=== PATIENT | male | born 1940 | race Caucasian/White ===

== ENCOUNTER 2017-07-14 11:08 | Outpatient (CLI) | payer MEDICARE ==
[2017-07-14] MEDS ORDERED: Iopamidol 370 76% 100 ML VIAL ONE (11:51)
== END 2017-07-14 11:09 | disposition home or self-care (01) ==
LOC: BICCT 11:08
PROVIDERS: ATTEND Family Medicine
DX: K52.9 Noninfective gastroenteritis and colitis, unspecified (principal); K21.9 Gastro-esophageal reflux disease without esophagitis; J31.0 Chronic rhinitis; F03.90 Unspecified dementia, unspecified severity, without behavioral disturbance, psychotic disturbance, mood disturbance, and anxiety; N40.0 Benign prostatic hyperplasia without lower urinary tract symptoms; I10 Essential (primary) hypertension; R63.4 Abnormal weight loss; R53.83 Other fatigue; R05 Cough
CPT/HCPCS: 74177

== ENCOUNTER 2019-07-04 12:29 | Observation (INO) | payer MEDICARE ==
[2019-07-04 13:22] LABS: #Eosinphils 0.1 thou/uL (0.0-0.7); #Lymphocytes 1.4 thou/uL (1.20-3.40); #Monocytes 0.8 thou/uL (0.11-0.59); %Basophils 0.5 % (0.0-1.0); %Eosinophils 1.1 % (0.0-10.0); %Lymphocytes 16.9 % (21.0-51.0); %Monocytes 9.9 % (0.0-10.0); %Neutrophils 71.6 % (42.0-75.0); Hemoglobin 13.5 g/dL (14.0-18.0); Mean Corpuscular HGB CONC 32.9 g/dL (32.0-36.0); Mean Corpuscular Hemoglobin 31.4 pg (27.0-31.0); Mean Corpuscular Volume 95.4 fL (78.0-98.0); Mean Platelet Volume 6.6 fL (7.4-10.4); Platelet Count 325 thou/uL (130-400); RBC Distribution Width 12.7 % (11.5-14.5); Red Blood Cell (RBC) Count 4.29 mill/uL (4.70-6.10); White Blood Cell (WBC) Count 8.4 thou/uL (4.8-10.8)
[2019-07-04 13:48] LABS: ALT (SGPT) 15 U/L (8-55); AST (SGOT) 12 U/L (5-34); Albumin 3.8 g/dL (3.4-4.8); Alkaline Phosphatase 62 U/L (40-110); Anion Gap 10 mmol/L (10-20); BUN (Urea Nitrogen) 18 mg/dL (8.4-25.7); Bilirubin, Total 0.4 mg/dL (0.2-1.2); Calc. Creatinine Clearance 0 mL/min (70-130); Calcium 8.7 mg/dL (7.8-10.44); Carbon Dioxide 30 mmol/L (23-31); Chloride 107 mmol/L (98-107); Estimated GFR-MDRD 67; Globulin 2.7 g/dL (2.4-3.5); Glucose 86 mg/dL (83-110); Lipase 17 U/L (8-78); Potassium 4.1 mmol/L (3.5-5.1); Protein, Total 6.5 g/dL (5.8-8.1); Sodium 143 mmol/L (136-145)
--- NOTE | 2019-07-04 14:04 | RAD ---
EXAM: Single view of the chest HISTORY: Cough COMPARISON: 10/29/2014 FINDINGS: Single view of the chest shows a normal sized cardiomediastinal silhouette. There is no jose elias dence of consolidation, mass, or pleural effusion. The bones are unremarkable. IMPRESSION: No evidence of acute cardiopulmonary disease
[2019-07-04 14:08] LABS: CKMB 1.6 ng/mL (0-6.6)
[2019-07-04] MEDS ORDERED: Ondansetron PF 4 MG/2 ML Vial IVP PRN (15:05)
[2019-07-04] MEDS ORDERED: Ondansetron ODT 4 MG TAB SL PRN (15:05)
[2019-07-04] MEDS ORDERED: Nitroglycerin 2% Ointment 1 INCH/1 GM Packet ONE (15:09)
[2019-07-04] MEDS ORDERED: Aspirin Chewable 81 MG TAB ONE (15:09)
--- NOTE | 2019-07-04 15:09 | PDOC.FPRHP ---
- History of Present Illness Chief Complaint: cough History of Present Illness: 78 y/o M PMHx HTN, Dementia, BPH presents to the ED because his noted him coughing and having more SOB the past couple of days. 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 reports facial swelling and left hand swelling that started this morning that prompted ER evaluation. Concerned about yellowing appearance as well. States he has been having a productive cough with increased sputum. States decrease PO intake. Has been sleeping more. Notes trouble breathing with wheezing and gurgling mainly at night. started to increase elevation in bed with 3 pillows to try to alleviate. Has noticed increase gagging due to thick mucus. states he is DNR. ED Course: The patient was evaluated in the ED by Dr. Meyers and found to have chest pain on palpation of his chest as well as elevated BP to 170/106. He was given nitro, aspirin, hydralazine, and duoneb. - Allergies/Adverse Reactions Allergies Allergy/AdvReac Type Severity Reaction Status Date / Time ibuprofen Allergy Verified 10/29/14 13:06 - Home Medications Medication Instructions Recorded Confirmed Type Citalopram [CeleXA] 20 mg PO DAILY 07/04/19 07/04/19 History Donepezil HCl 10 mg PO DAILY 07/04/19 07/04/19 History Losartan Potassium 50 mg PO DAILY 07/04/19 07/04/19 History Memantine HCl 10 mg PO BID 07/04/19 07/04/19 History OLANZapine [ZyPREXA] 2.5 mg PO HS 07/04/19 07/04/19 History Tamsulosin HCl 0.4 mg PO DAILY 07/04/19 07/04/19 History - History PMHx: Alzheimers dementia, HTN, BPH, GERD, CKD (1 kidney) PSHx: hernia, appy, ex lap, nephrectomy, prostate FHx: Mother: Alzheimer, Father: [place] Social: lives with who is sanitary plumber. Smoked until age 31. EtOH 1 glass of wine at mealtime. Hx of trauma which caused internal bleeding and loss of a kidney All: Ibuprofen - Review of Systems ROS unobtainable: due to mental status - Vital signs BP: 170/106 HR: 71 RR: 18 Tmax: 98.4 Pox: 95% on RA Wt: 56.7kg - Physical Exam Constitutional: NAD, other (alert, but not oriented) HEENT: normocephalic and atraumatic, EOMI, conjunctiva clear, grossly normal vision, grossly normal hearing, other (dry mucous membranes) Neck: supple, no LAD -Heart: bradycardic, irregular rhythm, trace edema in left hand Lungs: CTAB, no respiratory distress, good air movement, no rales/rhonchi, no wheezing Abdomen: soft, non-tender, bowel sounds present, no masses/distention Musculoskeletal: normal structure, normal tone Skin: capillary refill <2 seconds, no jaundice Heme/Lymphatic: no unusual bruising or bleeding, no purpura FMR H&P: Results - Labs Result Diagrams: 07/04/19 12:58 07/04/19 12:58 Lab results: WBC 8.4 thou/uL (4.8-10.8) 07/04/19 12:58 Hgb 13.5 g/dL (14.0-18.0) L 07/04/19 12:58 Hct 40.9 % (42.0-52.0) L 07/04/19 12:58 MCV 95.4 fL (78.0-98.0) 07/04/19 12:58 Plt Count 325 thou/uL (130-400) 07/04/19 12:58 Neutrophils % 71.6 % (42.0-75.0) 07/04/19 12:58 Sodium 143 mmol/L (136-145) 07/04/19 12:58 Potassium 4.1 mmol/L (3.5-5.1) 07/04/19 12:58 Chloride 107 mmol/L (98-107) 07/04/19 12:58 Carbon Dioxide 30 mmol/L (23-31) 07/04/19 12:58 BUN 18 mg/dL (8.4-25.7) 07/04/19 12:58 Creatinine 1.07 mg/dL (0.7-1.3) 07/04/19 12:58 Glucose 86 mg/dL (83-110) 07/04/19 12:58 Calcium 8.7 mg/dL (7.8-10.44) 07/04/19 12:58 Total Bilirubin 0.4 mg/dL (0.2-1.2) 07/04/19 12:58 AST 12 U/L (5-34) 07/04/19 12:58 ALT 15 U/L (8-55) 07/04/19 12:58 Alkaline Phosphatase 62 U/L (40-110) 07/04/19 12:58 CK-MB (CK-2) 1.6 ng/mL (0-6.6) 07/04/19 12:58 B-Natriuretic Peptide 65.7 pg/mL (0-100) 07/04/19 12:58 Serum Total Protein 6.5 g/dL (5.8-8.1) 07/04/19 12:58 Albumin 3.8 g/dL (3.4-4.8) 07/04/19 12:58 Lipase 17 U/L (8-78) 07/04/19 12:58 - EKG Interpretation EKG: poor quality, will repeat - Radiology Interpretation Chest x-ray Status: image reviewed by me, report reviewed by me Additional comment: No acute process FMR H&P: A/P - Problem List (1) Dehydration Current Visit: Yes Status: Acute Code(s): E86.0 - DEHYDRATION (2) Dysphagia Current Visit: Yes Status: Acute Code(s): R13.10 - DYSPHAGIA, UNSPECIFIED (3) Dementia Current Visit: Yes Status: Acute Code(s): F03.90 - UNSPECIFIED DEMENTIA WITHOUT BEHAVIORAL DISTURBANCE (4) Hypertensive urgency Current Visit: Yes Status: Acute Code(s): I16.0 - HYPERTENSIVE URGENCY (5) HTN (hypertension) Current Visit: Yes Status: Acute Code(s): I10 - ESSENTIAL (PRIMARY) HYPERTENSION (6) GERD (gastroesophageal reflux disease) Current Visit: Yes Status: Acute Code(s): K21.9 - GASTRO-ESOPHAGEAL REFLUX DISEASE WITHOUT ESOPHAGITIS (7) BPH (benign prostatic hyperplasia) Current Visit: Yes Status: Acute Code(s): N40.0 - BENIGN PROSTATIC HYPERPLASIA WITHOUT LOWER URINRY TRACT SYMP - Plan 1. Dehydration 2/2 Dysphagia Pt unable to give much history so it was obtained by . He has not been swallowing well and has been gagging on thick secretions -Will give maintenance fluids at 100mL/hr -Barium swallow/speech eval -Consider scopolamine patch 2. HTN Urgency BP elevated to 170s/100s initially in the ED, s/p hydralazine. -Monitor BP closely -Continue home losartan -hydralazine prn 3. Elevated Troponin Initial trop 0.042 -Trend trops -Repeat EKG 4. Dementia -Continue donepezil, memantine 5. BPH -Continue tamsulosin 6. GERD -Famotidine 7. s/p nephrectomy pt had traumatic injury to a kidney requiring nephrectomy. Renal function stable -Monitor 8. CKD2 Renal function stable -Monitor and avoid nephrotoxic agents Disposition/LOS: Obs on tele LOS: < 48 hours Addendum - Attending - Attending Attestation Date/Time: 07/04/19 0735 I personally evaluated the patient and discussed the management with Dr. Carey I agree with the History, Examination, Assessment and Plan documented above with any addition or exceptions noted below. Will admit for dehydration due to poor PO intake and progressive dysphagia. No evidence of aspiration. Swallow in AM. No evidence of ARF or HF. ABrayMD
[2019-07-04 16:28] LABS: Troponin I 0.036 ng/mL (< 0.028)
[2019-07-04 19:38] LABS: Troponin I 0.034 ng/mL (< 0.028)
[2019-07-04 19:56] VITALS: BMI 21.0
[2019-07-04] MEDS: OLANZapine 2.5 MG TAB PO SCH (22:12)
[2019-07-04] MEDS: Lactated Ringer's 1,000 ML IV SCH (22:13)
[2019-07-05 04:52] LABS: Anion Gap 10 mmol/L (10-20); BUN (Urea Nitrogen) 18 mg/dL (8.4-25.7); Calc. Creatinine Clearance 54 mL/min (70-130); Calcium 7.9 mg/dL (7.8-10.44); Carbon Dioxide 27 mmol/L (23-31); Chloride 109 mmol/L (98-107); Estimated GFR-MDRD 82; Glucose 94 mg/dL (83-110); Potassium 3.8 mmol/L (3.5-5.1); Sodium 142 mmol/L (136-145)
[2019-07-05] MEDS: Lactated Ringer's 1,000 ML IV SCH (06:05)
--- NOTE | 2019-07-05 06:25 | PDOC.FM ---
- Subjective Subjective: Uncommunicative. Spoke with and says his secretions are about the same this morning. - Objective MAR Reviewed: Yes Vital Signs & Weight: Vital Signs (12 hours) Temp Pulse Resp BP Pulse Ox 07/05/19 04:20 98.9 F 88 16 151/72 H 96 07/04/19 22:16 61 16 141/85 H 96 07/04/19 19:56 98 F 57 L 18 187/97 H 97 Weight Weight 55.656 kg Result Diagrams: 07/04/19 12:58 07/05/19 04:10 EKG Reviewed by me: Yes (Sinus rhythm, 50-60s) Phys Exam - Physical Examination Constitutional: NAD HEENT: moist MMs, oral pharynx no lesions Neck: no nodes, supple Upper airway sounds present, unable to clearly assess lungs Cardiovascular: RRR, no significant murmur Gastrointestinal: soft, non-tender, positive bowel sounds Musculoskeletal: no edema, pulses present Unable to assess Lymphatic: no nodes Deviation from normal: flat affect Skin: no rash, normal turgor Dx/Plan (1) Dehydration Code(s): E86.0 - DEHYDRATION Status: Acute (2) Dementia Code(s): F03.90 - UNSPECIFIED DEMENTIA WITHOUT BEHAVIORAL DISTURBANCE Status: Acute (3) Dysphagia Code(s): R13.10 - DYSPHAGIA, UNSPECIFIED Status: Acute (4) GERD (gastroesophageal reflux disease) Code(s): K21.9 - GASTRO-ESOPHAGEAL REFLUX DISEASE WITHOUT ESOPHAGITIS Status: Acute (5) HTN (hypertension) Code(s): I10 - ESSENTIAL (PRIMARY) HYPERTENSION Status: Acute (6) Hypertensive urgency Code(s): I16.0 - HYPERTENSIVE URGENCY Status: Acute (7) BPH (benign prostatic hyperplasia) Code(s): N40.0 - BENIGN PROSTATIC HYPERPLASIA WITHOUT LOWER URINRY TRACT SYMP Status: Acute - Plan Plan: 78 y/o M PMHx HTN, Dementia, BPH presents to the ED because his noted him coughing and having more SOB the past couple of days. 1. Dehydration 2/2 Dysphagia Pt unable to give much history so it was obtained by . He has not been swallowing well and has been gagging on thick secretions * Will give maintenance fluids at 100mL/hr * Barium swallow/speech eval 2. HTN Urgency BP elevated to 170s/100s initially in the ED, s/p hydralazine. * Monitor BP closely * Continue home losartan * hydralazine prn 3. Elevated Troponin Initial trop 0.042 > 0.036 > 0.034 4. Dementia * Continue donepezil, memantine * PT/OT to assess functional status * CM for HH * Does not qualify for hospice 5. BPH * Continue tamsulosin 6. GERD * Famotidine 7. s/p nephrectomy pt had traumatic injury to a kidney requiring nephrectomy. Renal function stable * Monitor 8. CKD2 Renal function stable * Monitor and avoid nephrotoxic agents * Cre: 0.9 today Disposition/LOS: Obs on tele, LOS: < 48 hours. Likely d/c today. Addendum - Attending - Attending Attestation Date/Time: 07/05/19 1860 I personally evaluated the patient and discussed the management with Dr. Macedo I agree with the History, Examination, Assessment and Plan documented above with any addition or exceptions noted below. Speech therapy to evaluate. CM to arranged outpatient HH services. Patient's would like to have patient evaluated for hospice services as she feels she will no longer be able to care for the patient at home by herself. CM consulted to help arranged. If outpatient services can be arranged and ST needs no additional studies, can d/c home. If additional time needed, will move to medical bed.
[2019-07-05] MEDS: Citalopram 20 MG TAB PO SCH (09:31)
[2019-07-05] MEDS: Tamsulosin HCl 0.4 MG CAP PO SCH (09:31)
[2019-07-05] MEDS: Famotidine 20 MG TAB PO SCH (09:31)
[2019-07-05] MEDS: Losartan 25 MG TAB PO SCH (09:31)
[2019-07-05] MEDS: Enoxaparin Sodium 40 MG/0.4 ML SYRINGE SC SCH (09:31)
[2019-07-05] MEDS: Aspirin 81 mg Enteric Coated Tablet PO SCH (09:31)
[2019-07-05] MEDS: Donepezil HCl 10 MG TAB PO SCH (09:31)
[2019-07-05] MEDS ORDERED: hydrALAZINE 20 MG/ML VIAL SLOW IVP PRN (12:58)
--- NOTE | 2019-07-05 14:26 | RAD ---
Modified barium swallow: 07/05/2019 COMPARISON: None HISTORY: Dementia, progressive dysphasia, dehydration, feeding difficulties, unspecified dysphasia FINDINGS: A modified barium swallow was performed in conjunction with a member division of speech pat hology. The patient is imaged in the lateral projection swallowing various consistencies of barium. There is a limited mobility of the epiglottis on all swallows with all consistencies. All consistenci es lead to prominent residual within the vallecula and piriform sinuses which does not clear upon multiple swallows. Penetration and aspiration is noted, likely on the basis of residua associated wit h the thin liquids. Penetration is also noted with puree. IMPRESSION: Penetration and aspiration as detailed above. Prominent residual in the piriform sinuses and vallecula which does not clear with multiple swallows. Please see speech pathologist report for full detail and feeding recommendations.
[2019-07-05] MEDS: OLANZapine 2.5 MG TAB PO SCH (21:00)
[2019-07-06] MEDS ORDERED: Melatonin 3 MG TAB PO SCH (00:30)
[2019-07-06] MEDS: Lactated Ringer's 1,000 ML IV SCH ×2 (00:52→11:32)
[2019-07-06] MEDS ORDERED: Lorazepam 2 MG/ML VIAL SLOW IVP SCH (02:00)
[2019-07-06 05:26] LABS: Anion Gap 11 mmol/L (10-20); BUN (Urea Nitrogen) 12 mg/dL (8.4-25.7); Calc. Creatinine Clearance 60 mL/min (70-130); Calcium 8.2 mg/dL (7.8-10.44); Carbon Dioxide 26 mmol/L (23-31); Chloride 109 mmol/L (98-107); Estimated GFR-MDRD Greater than 90; Glucose 86 mg/dL (83-110); Potassium 3.6 mmol/L (3.5-5.1); Sodium 142 mmol/L (136-145)
--- NOTE | 2019-07-06 06:17 | PDOC.FM ---
- Subjective Subjective: Pt was unable to sleep overnight and was given melatonin, which did not help. Spoke with his who said [facility] came by and they are setting him up for [facility]. - Objective MAR Reviewed: Yes Vital Signs & Weight: Vital Signs (12 hours) Temp Pulse Resp BP Pulse Ox 07/06/19 04:12 97.3 F L 52 L 16 155/74 H 92 L 07/05/19 19:15 98.4 F 64 16 140/72 98 Weight Weight 55.656 kg I&O: 07/04/19 07/05/19 07/06/19 06:59 06:59 06:59 Intake Total 1160 400 Output Total 650 Balance 510 400 Result Diagrams: 07/04/19 12:58 07/06/19 04:30 EKG Reviewed by me: Yes (Sinus rhythm 60s) Phys Exam - Physical Examination Constitutional: NAD HEENT: PERRLA, moist MMs Neck: no nodes, supple Respiratory: no wheezing, clear to auscultation bilateral Cardiovascular: RRR, no significant murmur, no rub Gastrointestinal: soft, non-tender, positive bowel sounds Musculoskeletal: no edema, pulses present unable to follow commands Lymphatic: no nodes Deviation from normal: flat affect Skin: no rash, normal turgor Dx/Plan (1) Dehydration Code(s): E86.0 - DEHYDRATION Status: Acute (2) Dementia Code(s): F03.90 - UNSPECIFIED DEMENTIA WITHOUT BEHAVIORAL DISTURBANCE Status: Acute (3) Dysphagia Code(s): R13.10 - DYSPHAGIA, UNSPECIFIED Status: Acute (4) GERD (gastroesophageal reflux disease) Code(s): K21.9 - GASTRO-ESOPHAGEAL REFLUX DISEASE WITHOUT ESOPHAGITIS Status: Acute (5) HTN (hypertension) Code(s): I10 - ESSENTIAL (PRIMARY) HYPERTENSION Status: Acute (6) Hypertensive urgency Code(s): I16.0 - HYPERTENSIVE URGENCY Status: Acute (7) BPH (benign prostatic hyperplasia) Code(s): N40.0 - BENIGN PROSTATIC HYPERPLASIA WITHOUT LOWER URINRY TRACT SYMP Status: Acute - Plan Plan: 78 y/o M PMHx HTN, Dementia, BPH presents to the ED because his noted him coughing and having more SOB the past couple of days. 1. Dehydration 2/2 Dysphagia Pt unable to give much history so it was obtained by . He has not been swallowing well and has been gagging on thick secretions * Will give maintenance fluids at 100mL/hr * Barium swallow/speech eval: Pureed with [place] thickened liquids 2. HTN Urgency BP elevated to 170s/100s initially in the ED, s/p hydralazine. * Monitor BP closely * Continue home losartan * hydralazine prn 3. Elevated Troponin Initial trop 0.042 > 0.036 > 0.034 4. Dementia * Continue donepezil, memantine * PT/OT to assess functional status * for vs [facility] 5. BPH * Continue tamsulosin 6. GERD * Famotidine 7. s/p nephrectomy pt had traumatic injury to a kidney requiring nephrectomy. Renal function stable * Monitor 8. CKD2 Renal function stable * Monitor and avoid nephrotoxic agents * Cre: 0.81 today Disposition/LOS: Obs on tele, LOS: < 48 hours. D/c today. Addendum - Attending - Attending Attestation Date/Time: 07/06/19 5732 I personally evaluated the patient and discussed the management with Dr. Macedo I agree with the History, Examination, Assessment and Plan documented above with any addition or exceptions noted below. Hospice arranged and approved. patient aggitated this morning likely due to sundowning and by being in hospital. will give haldol 2 mg IM and increase olanzipine dose. PCP notified. d/c home today. I suspect he will require placement in the near future.
[2019-07-06 08:00] VITALS: TEMP 98.9
[2019-07-06] MEDS: Aspirin 81 mg Enteric Coated Tablet PO SCH (10:09)
[2019-07-06] MEDS: Losartan 25 MG TAB PO SCH (10:09)
[2019-07-06] MEDS: Famotidine 20 MG TAB PO SCH (10:10)
[2019-07-06] MEDS: Citalopram 20 MG TAB PO SCH (10:11)
[2019-07-06] MEDS: Tamsulosin HCl 0.4 MG CAP PO SCH (10:11)
[2019-07-06] MEDS: Donepezil HCl 10 MG TAB PO SCH (10:11)
[2019-07-06] MEDS: Enoxaparin Sodium 40 MG/0.4 ML SYRINGE SC SCH (10:11)
[2019-07-06] MEDS ORDERED: Haloperidol Lactate 5 MG/ML VIAL IM SCH (11:00)
[2019-07-06] MEDS ORDERED: Haloperidol Lactate 5 MG/ML VIAL SLOW IVP SCH (11:00)
[2019-07-06 17:55] VITALS: BP 160/74
[2019-07-06] MEDS ORDERED: OLANZapine 5 MG TAB PO SCH (21:00)
--- NOTE | 2019-07-07 03:46 | DIS ---
DATE OF ADMISSION: 07/04/2019 DATE OF DISCHARGE: 07/06/2019 ADMITTING ATTENDING: Shauna Daly MD DISCHARGE ATTENDING: Stone Meredith MD RESIDENT: Hansel Macedo MD CONSULTS: Speech, PT, and OT. * Speech performed modified barium swallow on 07/05 that showed aspiration and prominent residual piriform sinuses and vallecula, which did not clear with multiple swallows. He was put on a palliative diet, pureed with thickened liquids. PROCEDURES: Chest x-ray 07/04 showed no evidence of acute cardiopulmonary disease. PRIMARY DIAGNOSIS: 1. Dehydration secondary to dysphagia. 2. Alzheimer's Disease. 3. Hypertensive Urgency SECONDARY DIAGNOSIS: 1. Gastroesophageal reflux disease 2. Hypertension 3. Benign prostatic hyperplasia. DISCHARGE MEDICATIONS: Continue home medications except olanzapine was increased from 2.5 mg at bedtime to 5 mg nightly. DISCONTINUED MEDICATIONS: 1. Hydralazine. 2. Haldol. 3. Pepcid. 4. Melatonin. HISTORY OF PRESENT ILLNESS: A 78-year-old male with a past medical history of hypertension, dementia, and BPH, presented to the ED because his noticed him coughing and having more shortness of breath the past couple days. 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 reports facial swelling and left hand swelling that started this morning that prompted ER evaluation. Concerned about yellowing appearance as well. States he has been having a productive cough and increased sputum. States decreased p.o. intake. Has been sleeping more and notes trouble breathing with wheezing and gurgling, mainly at night. started to increase elevation of bed with 3 pillows to try to alleviate and noticed increased pain due to thick mucus.. states the patient is DNR. In the ED the patient was evaluated by Dr. Meyers and found to have chest pain and palpitations on palpation of his chest as well as elevated blood pressure 170/106. He was given nitroglycerin, aspirin, hydralazine, and DuoNeb. 1. Dehydration secondary to dysphagia. The patient was unable to give much history; this was obtained from . He has not been swallowing well and has been gagging on thick secretions. * Given maintenance fluids at 100 mL/h. * Barium swallow and speech eval as noted above. 2. Hypertensive urgency. BP elevated to 170s/100s initially in the ED status post hydralazine. * Blood pressures were monitored. * Hydralazine was added on p.r.n. for blood pressures above 180. * Home dose of losartan was continued. 3. Elevated troponin. Initial troponins were 0.042, 0.036, and 0.034. * EKG was normal and troponins trended down, so no further workup was needed at this time. 4. Dementia, the patient's noted that he has been declining greatly over the past 3 months and even more prominently over the past couple of weeks, even not recognizing whom she is. * Continued home donepezil and memantine. * PT and OT were consulted to assess functional status. * customer care manager met with patient and hospice of [facility] was requested by family that he met and found the patient to qualify for home hospice, so he will be discharged with home hospice. 5. BPH. * Continue tamsulosin. 6. GERD. * Continue famotidine. 7. Status post nephrectomy. * The patient had a traumatic injury to kidney, requiring nephrectomy. * Renal function stable. 8. CKD stage 2. * Renal function, stable. * Monitor and avoid nephrotoxic agents. * Creatinine 0.81 today. DISPOSITION: Guarded. DISCHARGE INSTRUCTIONS: 1. Location: Home with hospice. 2. Diet: Pureed with thickened liquids. This was discussed with that there is risk for aspiration and risks and benefits were explained. She is in agreement that the patient can continue on this diet. 3. Activity: As tolerated. 4. Followup: Follow up with [place] [facility] physicians, Dr. Beyer in 7 days and [facility] when they reach home. Job ID: [id number] [facility]
== END 2019-07-06 16:19 | disposition hospice, home (50) ==
LOC: ERS 12:29 → ERHOLD 15:13 → 2NO 19:42
PROVIDERS: ADMIT Student in an Organized Health Care Education/Training Program; ATTEND Student in an Organized Health Care Education/Training Program
DX: E86.0 Dehydration (principal); R13.10 Dysphagia, unspecified; I16.0 Hypertensive urgency; G30.9 Alzheimer's disease, unspecified; F02.80 Dementia in other diseases classified elsewhere, unspecified severity, without behavioral disturbance, psychotic disturbance, mood disturbance, and anxiety; I12.9 Hypertensive chronic kidney disease with stage 1 through stage 4 chronic kidney disease, or unspecified chronic kidney disease; N18.9 Chronic kidney disease, unspecified; K21.9 Gastro-esophageal reflux disease without esophagitis; N40.0 Benign prostatic hyperplasia without lower urinary tract symptoms; Z79.899 Other long term (current) drug therapy; Z87.891 Personal history of nicotine dependence; Z88.6 Allergy status to analgesic agent
CPT/HCPCS: 71045; 74230; 80048 ×2; 80053; 82553; 82962; 83690; 83880; 84484 ×2; 85025; 87040; 93005; 94640; 96372 ×2; 96375; 96376; 97116; 97139 ×6; 99285; G0378 ×2; 36415; 36416; 93010; J0360; J1630; J1650; J2060; J7620

== ENCOUNTER 2019-09-21 17:29 | Inpatient (IN) | payer MEDICARE ==
[2019-09-21 18:04] LABS: #Lymphocytes 0.8 thou/uL (1.20-3.40); #Neutrophils 10.9 thou/uL (1.40-6.50); %Basophils 0.1 % (0.0-1.0); %Eosinophils 0.1 % (0.0-10.0); %Lymphocytes 6.3 % (21.0-51.0); %Monocytes 7.5 % (0.0-10.0); Hemoglobin 13.1 g/dL (14.0-18.0); Mean Corpuscular HGB CONC 31.9 g/dL (32.0-36.0); Mean Corpuscular Hemoglobin 30.7 pg (27.0-31.0); Mean Corpuscular Volume 96.3 fL (78.0-98.0); Mean Platelet Volume 7.3 fL (7.4-10.4); Platelet Count 266 thou/uL (130-400); RBC Distribution Width 12.9 % (11.5-14.5); Red Blood Cell (RBC) Count 4.28 mill/uL (4.70-6.10); White Blood Cell (WBC) Count 12.7 thou/uL (4.8-10.8)
[2019-09-21 18:27] LABS: ALT (SGPT) 16 U/L (8-55); AST (SGOT) 12 U/L (5-34); Alkaline Phosphatase 133 U/L (40-110); Anion Gap 12 mmol/L (10-20); BUN (Urea Nitrogen) 19 mg/dL (8.4-25.7); Calc. Creatinine Clearance 0 mL/min (70-130); Carbon Dioxide 28 mmol/L (23-31); Chloride 105 mmol/L (98-107); Estimated GFR-MDRD 69; Globulin 2.7 g/dL (2.4-3.5); Glucose 112 mg/dL (83-110); Potassium 3.8 mmol/L (3.5-5.1); Protein, Total 6.7 g/dL (5.8-8.1); Sodium 141 mmol/L (136-145)
--- NOTE | 2019-09-21 19:12 | RAD ---
AP PELVIS AND LEFT HIP TWO VIEWS: 09/21/19 HISTORY: Fall, left hip pain. FINDINGS/IMPRESSION: There is a fracture of the neck of the left femur with associated foreshortening and superior displac ement. The right proximal femur appears intact. POS: JOSIAH
--- NOTE | 2019-09-21 19:19 | RAD ---
RIGHT HIP TWO VIEWS: 09/21/19 HISTORY: Fall. Right hip pain. FINDINGS/IMPRESSION: No acute fracture or dislocation is seen. POS: JOSIAH
[2019-09-21] MEDS ORDERED: Morphine 4 MG/ML VIAL ONE ×2 (20:02→23:39)
[2019-09-22] MEDS ORDERED: Dextrose 5% in Water 1,000 ML IV PRN (00:22)
[2019-09-22] MEDS ORDERED: Ondansetron PF 4 MG/2 ML Vial IVP PRN (00:22)
[2019-09-22] MEDS ORDERED: Ondansetron ODT 4 MG TAB PO PRN (00:22)
[2019-09-22] MEDS ORDERED: hydrALAZINE 20 MG/ML VIAL SLOW IVP PRN (00:22)
[2019-09-22] MEDS ORDERED: Sodium Chloride 0.9% 1,000 ML IV SCH (00:22)
[2019-09-22] MEDS ORDERED: Dextrose 50% Abboject 50 ML SYRINGE SLOW IVP PRN (00:22)
[2019-09-22] MEDS: Acetaminophen 500 MG TAB PO SCH ×4 (01:24→17:52)
[2019-09-22 05:21] LABS: #Monocytes 0.9 thou/uL (0.11-0.59); #Neutrophils 7.7 thou/uL (1.40-6.50); %Basophils 0.1 % (0.0-1.0); %Eosinophils 0.3 % (0.0-10.0); %Lymphocytes 10.6 % (21.0-51.0); %Monocytes 9.7 % (0.0-10.0); %Neutrophils 79.3 % (42.0-75.0); Hemoglobin 13.1 g/dL (14.0-18.0); Mean Corpuscular Hemoglobin 31.7 pg (27.0-31.0); Mean Corpuscular Volume 96.1 fL (78.0-98.0); Mean Platelet Volume 7.6 fL (7.4-10.4); Platelet Count 249 thou/uL (130-400); RBC Distribution Width 12.9 % (11.5-14.5); Red Blood Cell (RBC) Count 4.11 mill/uL (4.70-6.10); White Blood Cell (WBC) Count 9.7 thou/uL (4.8-10.8)
--- NOTE | 2019-09-22 05:29 | HP ---
REQUESTING PHYSICIAN: Dr. Rachel. ATTENDING SURGEON: Dr. Aviles. CONSULTATIONS: Orthopedics, Dr. Betancourt. HISTORY OF PRESENT ILLNESS: The patient is a 78-year-old man with late stage Alzheimer's, who is on hospice at home, who reportedly had a fall this morning. The is able to finally get him to the hospital where he underwent evaluation and examination, and was noted to have a left femoral neck fracture, at which time we were asked to evaluate the patient for admission and obtain Orthopedic consultation. Dr. Betancourt spoke with the patient's who declined surgery at this time, feeling that he would not be able to participate in therapy and she did not feel that it would help him, so she was declining at this time. At the time of my discussion with her, she again felt that he would have a difficult time tolerating the surgery and more so postoperatively and she requests that he just have comfort measures at this time. She did say that she was going to contact his son and we will readdress this again in the morning. Otherwise, she reports that the patient did not hit his head and had no loss of consciousness and appears at his baseline. ALLERGIES: IBUPROFEN. THE REPORTS DUE TO GI UPSET AND BLEEDING. CURRENT MEDICATIONS: 1. Flomax. 2. Olanzapine. 3. Memantine. 4. Citalopram. 5. Donepezil. 6. Losartan. 7. Trazodone. 8. Haldol. 9. Roxanol. PAST MEDICAL HISTORY: Heart disease, hypertension, gastroesophageal reflux disease, BPH, atrial fibrillation. PAST SURGICAL HISTORY: Hernia repair, TURP, appendectomy, nephrectomy. 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 He smoked for a very brief period of time greater than 10 years ago. No history of tobacco or drug use. The patient on hospice due to repeated falls, advancing Alzheimer's and repeated episodes of aspiration. REVIEW OF SYSTEMS: A 10-point review of systems is negative as otherwise stated. PHYSICAL EXAMINATION: VITAL SIGNS: Blood pressure 140/85, heart rate 62, respirations 17, oxygen saturation is 98% on room air, and temperature is 98. GENERAL: The patient is resting comfortably in bed. He is asleep at this time. asked me to not wake him as he frequently at night if he becomes awake will at that time start wandering. She stated before he fell asleep with the pain medications he was at his baseline and mentation. His baseline is at best A and O x1. HEENT. Head is normocephalic. Eyes are PERRLA bilaterally. Extraocular motion was not tested. Nose, atraumatic without discharge. Ears are atraumatic without discharge. NECK: Neck is nontender, trachea is midline. No JVD. CHEST: Clear to auscultation with moderate inspiratory and expiratory effort. HEART: Irregular rate and rhythm consistent with his atrial fibrillation. ABDOMEN: Soft, flat, nontender with hypoactive bowel sounds. EXTREMITIES: Neurovascularly intact x4. LABORATORY FINDINGS: White blood cell count 12.7, hemoglobin 13.1, hematocrit 41.2, platelets 266. Sodium 141, potassium 3.8, chloride 105, CO2 of 28, BUN 19, creatinine 1.04, glucose 112. LFTs are unremarkable with the exception of alkaline phosphatase at 133. IMAGING: Radiographic report, AP pelvis shows a fracture of the neck of the left femur with associated foreshortening and superior displacement. Views of the right hip shows no acute fracture or dislocation. Views of the left hip again show a fracture of the neck of the left femur with associated foreshortening and superior displacement. ASSESSMENT/PLAN: 1. Status post ground level fall. 2. Left femoral neck fracture. 3. Advanced Alzheimer disease. 4. History of hypertension, benign prostate benign prostatic hypertrophy, atrial fibrillation. 5. History of home hospice care. PLAN: Plan will be to admit the patient to the surgical floor. We will again readdress surgical options with the family in the morning. We will do pain control, pulmonary toilet, gastritis, mechanical VTE prophylaxis. We will consult Palliative Care and Case Management regarding placement of the patient that will be needed whether he has surgery or not. The evaluation, examination, laboratory, and radiographic findings were discussed with Dr. Aviles prior to this dictation. Job ID: [id number]
[2019-09-22 05:42] LABS: Anion Gap 13 mmol/L (10-20); BUN (Urea Nitrogen) 17 mg/dL (8.4-25.7); Calc. Creatinine Clearance 54 mL/min (70-130); Calcium 8.5 mg/dL (7.8-10.44); Carbon Dioxide 24 mmol/L (23-31); Chloride 107 mmol/L (98-107); Estimated GFR-MDRD 87; Glucose 123 mg/dL (83-110); Potassium 3.7 mmol/L (3.5-5.1); Sodium 140 mmol/L (136-145)
[2019-09-22] MEDS: Sodium Chloride 0.9% 1,000 ML IV SCH ×2 (07:17→10:40)
[2019-09-22] MEDS: Famotidine/PF 20 mg/2ml Vial SLOW IVP SCH ×2 (08:39→20:32)
--- NOTE | 2019-09-22 09:11 | CON ---
DATE OF CONSULTATION: This is Blair Jolly PA-C dictating a report for Italo Betancourt MD. HISTORY OF PRESENT ILLNESS: We were asked by ER to see patient. The patient is in the ER on a gurney. His accompanies him as does his hospice nurse. The patient apparently got up and fell, sustaining a left hip fracture. The patient was quite ill six months ago. He struggled with aspiration pneumonia. He got quite ill, was placed on hospice. relates a story that he was too sick to even put a G-tube in. He went on a pureed diet and has been doing okay. He is still currently on hospice. states he gets up occasionally and moves around fairly well. They reside at home and will get into the potato chips or snacks he likes. Unfortunately this time, he took a tumble. No other injuries. Per , the patient is demented with Alzheimer's. PAST MEDICAL HISTORY: Heart disease, hypertension, GERD, BPH, and atrial fibrillation. PAST SURGICAL HISTORY: Hernia repair, TURP, appendectomy, and nephrectomy. CURRENT MEDICATIONS: 1. Flomax. 2. Olanzapine. 3. Memantine. 4. Citalopram. 5. Benazepril. 6. Losartan. 7. Trazodone. 8. Haldol. 9. Roxanol. ALLERGIES: IBUPROFEN. SOCIAL HISTORY: Resides at home with his . She primarily takes care of him, but again they do have a hospice nurse. Nonsmoker for at least 10 years. No other alcohol, tobacco, or drug use whatsoever. REVIEW OF SYSTEMS: Other than being in some pain and speaking with , rest of the review of systems is negative. PHYSICAL EXAMINATION: GENERAL: Well-nourished appearing male, resting on a gurney in the ER. Currently, no acute distress. Speech clear. Answers a few simple questions, but does not follow many commands and other than some simple yes and no questions, his speech is quite garbled. HEENT: Face symmetric. Tongue midline. NECK: Supple. Trachea midline. UPPER EXTREMITIES: Equal size, shape, and symmetry. Normal bulk and tone. RESPIRATORY: Respirations 20, but regular. ABDOMEN: Soft, nontender. Pelvis nontender with rocking, but any movement of that left hip causes him a fair amount of pain. He winces and moans. LOWER EXTREMITIES: He has good sensations down both lower extremities. He can retract his foot, when I run my thumb along the ball of his foot. DP and PT pulses are intact. ASSESSMENT: Left hip fracture. PLAN: currently is not interested in surgery. Dr. Betancourt spoke with , hospice nurse, and patient that the patient can go without surgical intervention of this particular injury, but that he would be wheelchair bound. The patient with his neurological deficits may continue to try and walk and may be able to do so, but will be very unstable and with his mentation changes, could be prone to further falls. states that they have been trying to get into some kind of care facility. As we spoke with , this seems a little more needed at this time after this injury as it appear she has her hands quite full with her . Trauma will admit to the hospital. Again, we will honor the family's wishes of no surgical intervention, this should change for any reason. We let the know we will be happy to fix the 's hip, but we will check on her daily while she is in the hospital to see if she has any questions or concerns regarding the hip for our Orthopedic Service. Job ID: [id number]
[2019-09-22] MEDS: Morphine 4 MG/ML VIAL SLOW IVP PRN ×2 (12:11→20:32)
--- NOTE | 2019-09-22 14:50 | PRG ---
DATE OF SERVICE: 09/22/2019 SUBJECTIVE: Mr. Nj is a 78-year-old male with history of severe dementia, Alzheimer, presented to our facility after mechanical fall at home. The patient sustained left femoral neck fracture and deconditioning. No events overnight. Vital signs stable. Urine adequate. The patient has poor diet due to mental status and the patient is not able to mobilize very well. The patient's family, especially the patient's decided comfort measures at the moment. The patient's family believes surgery will not help the patient to improve any of the current daily function. OBJECTIVE: GENERAL: Currently, the patient lying in the bed comfortable with no acute respiratory distress. Mental status is at his baseline. He is mostly noncommunicative. He appears comfortable with E4 V3 M3. VITAL SIGNS: Temperature 99.1, heart rate 82, respiratory rate 14, O2 saturation 96% on 2 L, and blood pressure 143/100. LUNGS: Clear bilaterally. HEART: Regular rate and rhythm. ABDOMEN: Soft, nondistended. EXTREMITIES: Pulses positive bilaterally. Unable to assess sensory due to the patient's mental status. ASSESSMENT: 1. Status post ground level fall. 2. Left hip fracture. 3. Alzheimer's disease. PLAN: We will continue supportive care. Continue pain control. We will initiate DVT prophylaxis. Encourage the oral intake with pureed. canvas worker will work with family for inpatient hospice on Tuesday. Job ID: [id number]
--- NOTE | 2019-09-22 17:20 | PRG ---
DATE OF SERVICE: 09/22/2019 Mr. Nj suffered a femoral neck fracture. He is admitted to the Trauma Service. He is on hospice. Prior to this admission, the decision was made not to do surgery. The patient can be discharged back to [facility]. The is present, wants to take him back home with hospice care. I have told her that this is reasonable and will be ready to be discharged home whenever [facility] hospice can be arranged. Job ID: [id number]
[2019-09-22] MEDS: Senokot S 8.6-50 MG TAB PO SCH (20:32)
[2019-09-22] MEDS: traZODone HCl 150 MG TAB PO SCH (20:32)
[2019-09-22] MEDS: Enoxaparin Sodium 40 MG/0.4 ML SYRINGE SC SCH (20:36)
--- NOTE | 2019-09-22 23:54 | PRG ---
DATE OF SERVICE: 09/22/2019 SUBJECTIVE: The patient is currently on the surgical floor. He is status post ground level fall, in which he sustained a left femoral neck fracture. The patient has advanced Alzheimer's and is currently on home hospice and in light of this, the family has decided to not move forward with operative intervention. At this point, I have been told that Case Management is working on hospice options, inpatient versus home with hospice. Otherwise, the nurses did not report any issues today. PHYSICAL EXAMINATION: VITAL SIGNS: Stable. The patient is afebrile. GENERAL: The patient is currently asleep in bed as he has been given his nighttime medicines. I did not awaken him as the reminded me repeatedly yesterday that if he gets awaken up, he tends to wander a lot and becomes agitated. RESPIRATORY: His respirations appear nonlabored. He appears comfortable. ASSESSMENT AND PLAN: 1. Status post ground level fall. 2. Left femoral neck fracture, being treated nonoperatively per family desires. 3. Advanced Alzheimer disease. 4. History of hypertension, BPH, and atrial fibrillation. 5. History of home hospice care. Plan will be to continue supportive care, comfort measures, and await placement decision. Job ID: [id number]
[2019-09-23] MEDS: Acetaminophen 500 MG TAB PO SCH ×5 (01:14→23:40)
[2019-09-23] MEDS: Morphine 4 MG/ML VIAL SLOW IVP PRN (03:48)
[2019-09-23] MEDS ORDERED: Prevnar 13-Val Conj/PF 0.5 ML SYRINGE IM ONE (09:00)
[2019-09-23] MEDS: Senokot S 8.6-50 MG TAB PO SCH ×2 (10:03→21:43)
[2019-09-23] MEDS: Polyethylene Glycol 3350 17 GM Packet PO SCH (10:03)
[2019-09-23] MEDS: Famotidine 20 MG TAB PO SCH ×2 (10:03→21:43)
[2019-09-23] MEDS: Losartan 25 MG TAB PO SCH (10:03)
[2019-09-23] MEDS: Citalopram 20 MG TAB PO SCH ×2 (10:03→14:14)
[2019-09-23] MEDS: Tamsulosin HCl 0.4 MG CAP PO SCH ×2 (10:03→14:14)
[2019-09-23] MEDS: Famotidine/PF 20 mg/2ml Vial SLOW IVP SCH (10:04)
[2019-09-23] MEDS: Morphine 2 MG/ML SYRINGE SLOW IVP PRN ×2 (14:28→21:44)
--- NOTE | 2019-09-23 16:45 | PRG ---
DATE OF SERVICE: 09/23/2019 SUBJECTIVE: Mr. Nj remained in surgical floor. The patient has a history of severe dementia for 10 years, sustained left hip fracture. The patient remained in mental status the same. Vital signs stable. Urine adequate. He is able to tolerate his pureed diet. OBJECTIVE: GENERAL: Currently, the patient is lying down comfortable with no signs of acute respiratory distress. VITAL SIGNS: Temperature is 97.7, heart rate 89, respiratory rate 18, O2 saturation 94% on room air, blood pressure 144/80. LUNGS: Clear bilaterally. HEART: Regular rate and rhythm. ABDOMEN: Soft. Nondistended. EXTREMITIES: Neurovascularly intact x4. ASSESSMENT: 1. Status post ground level fall. 2. Left hip fracture, conservative treatment. 3. Alzheimer disease, severe dementia. PLAN: Continue supportive care. Continue pain control. Continue DVT prophylaxis. Await for placement in rehabilitation facility or inpatient hospice. Job ID: [id number]
[2019-09-23] MEDS: traZODone HCl 150 MG TAB PO SCH (21:43)
[2019-09-23] MEDS: Enoxaparin Sodium 40 MG/0.4 ML SYRINGE SC SCH (21:44)
--- NOTE | 2019-09-23 22:35 | PRG ---
DATE OF SERVICE: SUBJECTIVE: The patient remains on the surgical floor. He is status post ground level fall, in which he sustained a left femoral neck fracture. He is being treated nonoperatively per the family's request as he is on home hospice and has advanced Alzheimer's and it was felt that he would not do well with the surgery or any type of rehab. At this point, we are working with Case Management to get him placed. was able to speak with his again and she again emphasized that placement is the family's wishes and we will work toward this. PHYSICAL EXAMINATION: VITAL SIGNS: Stable. The patient is afebrile. GENERAL: The patient is resting comfortably in bed. He is awake tonight and the states that this is his baseline as he will answer her simple questions and respond to her and follows basic commands. RESPIRATIONS: Appear nonlabored. EXTREMITIES: He is moving all 4 extremities. ASSESSMENT: 1. Status post ground level fall. 2. Left femoral neck fracture, being treated nonoperatively per family's request. 3. Advanced Alzheimer disease. 4. History of hypertension, BPH, and atrial fibrillation. 5. History of hospice care. PLAN: Plan will be to continue supportive measures and await placement decision. Job ID: [id number]
[2019-09-24] MEDS: Acetaminophen 500 MG TAB PO SCH ×3 (06:15→16:27)
[2019-09-24] MEDS ORDERED: Scopolamine 1.5 mg/72 hour Patch TD SCH (08:00)
[2019-09-24] MEDS: Losartan 25 MG TAB PO SCH (08:17)
[2019-09-24] MEDS: Citalopram 20 MG TAB PO SCH (08:17)
[2019-09-24] MEDS: Tamsulosin HCl 0.4 MG CAP PO SCH (08:17)
[2019-09-24] MEDS: Famotidine 20 MG TAB PO SCH (08:27)
[2019-09-24] MEDS: Polyethylene Glycol 3350 17 GM Packet PO SCH (08:28)
[2019-09-24] MEDS: Senokot S 8.6-50 MG TAB PO SCH (08:28)
[2019-09-24 12:07] VITALS: BP 136/78; TEMP 97.4
== END 2019-09-24 16:34 | disposition hospice, inpatient (51) | DRG 534 ==
LOC: ERS 17:29 → SURG A 22:31 → OBSVTOIN 22:31
PROVIDERS: ADMIT Specialist; ATTEND Specialist
DX: S72.92XA Unspecified fracture of left femur, initial encounter for closed fracture (principal); N40.0 Benign prostatic hyperplasia without lower urinary tract symptoms; Z51.5 Encounter for palliative care; I10 Essential (primary) hypertension; R29.6 Repeated falls; I48.91 Unspecified atrial fibrillation; W18.30XA Fall on same level, unspecified, initial encounter; K21.9 Gastro-esophageal reflux disease without esophagitis; F02.80 Dementia in other diseases classified elsewhere, unspecified severity, without behavioral disturbance, psychotic disturbance, mood disturbance, and anxiety; G30.9 Alzheimer's disease, unspecified; Z90.49 Acquired absence of other specified parts of digestive tract; Z87.891 Personal history of nicotine dependence; Z99.3 Dependence on wheelchair; Z79.01 Long term (current) use of anticoagulants
CPT/HCPCS: 36415; 72170; 80048; 80053; 85025; 93005; 94640; G0390; J1650; J2270; J7620; S0028